=== PATIENT | male | born 1945 | race Caucasian/White ===

== ENCOUNTER 2016-09-29 18:03 | Emergency (ER) | payer OTHER ==
[~2016-09-29] VITALS: Ht 177.8 cm; Wt 81.6 kg
[2016-09-29 18:08] VITALS: BP 184/87
--- NOTE | 2016-09-29 18:18 | ED GENERAL ADULT ---
History of Present Illness General Chief Complaint: Allergy Symptoms Stated Complaint: MEDICATION REACTION Source: patient, family, old records Exam Limitations: no limitations Vital Signs & Intake/Output Vital Signs & Intake/Output Vital Signs Date Time Temp Pulse Resp B/P Pulse O2 O2 Flow FiO2 Ox Delivery Rate 09/29 1808 97.8 89 16 184/87 97 Room Air Allergies Uncoded Allergies: Med Allergies DENIES Reconcile Medications Methylprednisolone. (Medrol) 4 MG TAB.DS.PK 1 DP PO AD ALLERGIC REACTION 6 on day 1 then reduce by one tablet daily until gone Triage Note: PT STATES HE NOTICED HIS LIP WAS SWELLING.. PT WAS PLACED ON LASIX AND LISINOPRIL AND HIS DOSE OF LISINPORIL WAS CHANGED HE NEEDED TO TAKE A DOUBLE DOSE AND HAS BEEN FOR THE PAST 3 DAYS. PT STATES THE SWELLING TO HIS LIP BEGAN THIS AFTERNOON. Triage Nurses Notes Reviewed? yes Onset: Abrupt Duration: hour(s): (4), constant Timing: recent history Injury Environment: home Severity: mild Severity Numbers: 3 No Modifying Factors: none Associated Symptoms: DENIES HPI: 71-year-old male with history of colitis recently diagnosed hypertension for which she was started on lisinopril 2 weeks ago and had the dose increased 3 days ago to 20 mg a day presents after he developed a traumatic left lower lip swelling since 3:00 this afternoon while having ice cream. The patient denies any difficulty swallowing or difficulty breathing. No tongue swelling. He denies any rash to his skin no pruritus no history of allergic reactions or anaphylaxis in the past. He has not attempted taking anything for his symptoms. He denies any other modifying factors or associated symptoms otherwise. The patient states that the symptoms have not gotten worse since they began. The patient denies biting his lip or recent injury or trauma (CHRISTOS WHEATLEY) Past History Travel History Traveled to [place] past 21 day No Medical History Any Pertinent Medical History? see below for history Cardiovascular: hypertension Gastrointestinal: ulcerative colitis Musculoskeletal: spinal stenosis Surgical History Surgical History: none Psychosocial History What is your primary language Romansh Tobacco Use: Current Daily Use Daily Tobacco Use Amount/Type: =< 4 Cigarettes daily ETOH Use: occasional use Illicit Drug Use: denies illicit drug use Family History Hx Contributory? No (CHRISTOS WHEATLEY) Review of Systems Review of Systems Constitutional: Reports: see HPI. All Other Systems: Reviewed and Negative Comments Review of systems: See HPI, All other systems negative. Constitutional, no chills no fever, no malaise HEENT: No visual changes no sore throat no congestion, no ear pain Cardiovascular: No chest pain , no palpitation , Skin, no rashes, no change in skin Respiratory: No dyspnea no cough no sputum GI: No nausea no vomiting, no diarrhea, no bloating/constipation : No dysuria Muscle skeletal: No joint pain, no joint swelling, no back pain, Neurologic: No numbness no confusion, no headache Psych: No stress Heme/endocrine: No bruising no bleeding Immunology: No lymphadenopathy, (CHRISTOS WHEATLEY) Physical Exam Physical Exam General Appearance: well developed/nourished, no apparent distress, alert, awake , comfortable Comments: Well-developed well-nourished patient in no apparent distress. Head/Face: Atraumatic, no maxillary/frontal sinus tenderness, minimal localized left lower lip swelling, no tongue swelling or facial swelling noted Eyes: PERRL, EOMI, no conjunctival injection. No nystagmus Ear:External auditory canals clear Nose: atraumatic.Normal inspection Throat: Moist mucous membranes.Pharynx normal. No pharyngeal erythema/exudate seen. No stridor/drooling or assymetry. No swelling or edema. Neck: Supple, no lymphadenopathy, FROM Back: FROM, Nontender Cardiovascular: Regular rate and rhythms no murmurs rubs Respiratory: No respiratory distress. Patient speaking in full complete sentences. Breath sounds clear to auscultation bilaterally: NO W/R/R Extremities: full range of motion Neuro: Alert and oriented x3 Skin: Warm & dry;No appreciable rash on exposed skin Psych: Mood affect normal, normal memory normal judgment. Core Measures ACS in differential dx? No CVA/TIA Diagnosis: No Severe Sepsis Present: No Septic Shock Present: No (CHRISTOS WHEATLEY) Progress Differential Diagnoses I considered the following diagnoses in my evaluation of the patient: Angioedema allergic reaction anaphylaxis Plan of Care: Current Medications Sig/Sneg Start time Last Medication Dose Stop Time Status Admin Diphenhydramine HCl 50 MG ONCE ONE 09/29 1829 UNVr (Benadryl) 09/29 1830 Prednisone 60 MG ONCE ONE 09/29 1829 UNVr 09/29 1830 Patient clinically appears well. Discussed with them my concern for angioedema however given localized nature only to the left corner of the lower lip advised that he stop the lisinopril, Close follow-up with his primary care physician. The patient states that he would rather wait and speak with his primary care physician prior to starting a new blood pressure medication. Patient was prescribed prescription for Medrol Dosepak he will have close follow-up with his primary discussed with him the warning signs red flags to look for if symptoms worsen. He feels comfortable this plan I answered all their questions cleared for discharge (CHRISTOS WHEATLEY) Initial ED EKG: none (CHRISTOS WHEATLEY) Departure Departure Time of Disposition: 1827 Disposition: HOME OR SELF CARE Condition: Stable Clinical Impression Primary Impression: Angioedema Referrals: PATIENT HAS NO PRIMARY CARE DR Additional Instructions: Follow-up with your primary care physician on Saturday stop taking the lisinopril. Prednisone as directed. He is been given today's dose. As discussed if he develop worsening swelling, difficulty breathing difficulty swallowing or any other concerns return immediately This prescription was sent to [facility] pharmacy Departure Forms: Customer Survey General Discharge Information Prescriptions: Current Visit Scripts Methylprednisolone. (Medrol) 1 DP PO AD #1 DP 6 on day 1 then reduce by one tablet daily until gone (CHRISTOS WHEATLEY) PA/SENIOR GAME DEVELOPER Co-Sign Statement Statement: ED Attending supervision documentation- [x] I saw and evaluated the patient. I have also reviewed all the pertinent lab results and diagnostic results. I agree with the findings and the plan of care as documented in the PA's/SENIOR GAME DEVELOPER's documentation. [] I have reviewed the ED Record and agree with the PA's/SENIOR GAME DEVELOPER's documentation. [] Additions or exceptions (if any) to the PAs/SENIOR GAME DEVELOPER's note and plan are summarized below: [] (ILEANA BOWLES,AMARJIT Meeks) Critical Care Note Critical Care Note Critical Care Time: non-applicable (CHRISTOS WHEATLEY)
[2016-09-29] MEDS ORDERED: MEDROL4 M2 PO (18:29)
== END 2016-09-29 18:58 ==
LOC: ERH 18:03
DX: T78.3XXA Angioneurotic edema, initial encounter (principal)